=== PATIENT | female | born 2005 | race Caucasian/White ===

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

== ENCOUNTER → 2024-04-05 | Outpatient (CLI) | payer OTHER | LOC: LAB 15:06 → LAB SHORT 15:06 | DX: O09.91 Supervision of high risk pregnancy, unspecified, first trimester (principal) | CPT/HCPCS: 87081; 87150 ==

== ENCOUNTER 2024-04-18 20:26 | Inpatient (IN) | payer OTHER ==
[~2024-04-18] VITALS: Ht 160 cm; Wt 80.9 kg
[2024-04-18] MEDS ORDERED: Misoprostol 200 MCG Tab BC PRN (21:05)
[2024-04-18] MEDS ORDERED: Misoprostol 200 MCG Tab PR PRN (21:05)
[2024-04-18] MEDS ORDERED: Carboprost Tromethamine 250 MCG/ML 1ML Amp IM PRN (21:05)
[2024-04-18] MEDS ORDERED: Tranexamic Acid 1,000 MG in NS 100 ML IV SCH (21:05)
[2024-04-18] MEDS ORDERED: Methylergonovine Maleate 0.2MG / ML 1ML Amp IM PRN (21:05)
[2024-04-18] MEDS ORDERED: OXYTOCIN/RINGER'S LACTATE 500 ML IV PRN (21:05)
[2024-04-18] MEDS ORDERED: FentaNYL 2mcg/ml-Bup 0.1% Epd 250 ML EPI PRN (21:05)
[2024-04-18] MEDS ORDERED: Ondansetron HCl 2 MG / ML 2ML Vial IV PRN (21:05)
[2024-04-18] MEDS ORDERED: Acetaminophen 500 MG Tab PO PRN (21:05)
[2024-04-18] MEDS ORDERED: Oxytocin 10 Unit / ML Vial IM PRN (21:05)
[2024-04-18] MEDS ORDERED: Lactated Ringer's 1,000 ML IV PRN ×4 (21:05→21:10)
[2024-04-18] MEDS ORDERED: ePHEDrine Sulfate 50 MG/ML 1ML Injection XX PRN (21:05)
[2024-04-18] MEDS ORDERED: Calcium Carbonate 500 MG Tab Chew PO PRN (21:10)
[2024-04-18] MEDS ORDERED: OXYTOCIN/RINGER'S LACTATE 500 ML IV SCH (21:15)
[2024-04-18] MEDS ORDERED: Misoprostol 25 MCG Tab PO SCH (21:15)
[2024-04-18] MEDS ORDERED: FentaNYL Citrate 50 MCG/ML 2 ML Injection IV PRN (21:20)
[2024-04-18 22:03] LABS: BASOPHILS ABSOLUTE AUTO 0.02 K/mm3 (0.00-0.23); BASOPHILS PERCENT AUTO 0 % (0-2); EOSINOPHILS ABSOLUTE AUTO 0.12 K/mm3 (0.00-0.68); EOSINOPHILS PERCENT AUTO 1 % (0-6); Hematocrit 30.8 % (33.0-51.0); Hemoglobin 10.2 g/dL (11.5-16.0); IMMATURE GRAN ABSOLUTE AUTO 0.05 K/mm3 (0.00-0.10); IMMATURE GRAN PERCENT AUTO 0 % (0-1); LYMPHOCYTES PERCENT AUTO 18 % (21-46); MONOCYTES ABSOLUTE AUTO 0.76 K/mm3 (0.16-1.47); MONOCYTES PERCENT AUTO 7 % (4-13); Mean Corpuscular HGB 26.8 pg (26.0-34.0); Mean Corpuscular HGB Conc 33.1 g/dL (31.5-36.5); Mean Corpuscular Volume 81 fL (80-100); NEUTROPHILS ABSOLUTE AUTO 8.59 K/mm3 (1.96-9.15); NEUTROPHILS PERCENT AUTO 74 % (41-73); Platelet Count 270 K/mm3 (150-400); RDW Coefficient Variation 14.4 % (11.7-14.2); RDW Standard Deviation 42.2 fL (35.1-46.3); Red Blood Cell Count 3.81 M/mm3 (3.80-5.20); White Blood Cell Count 11.64 K/mm3 (4.00-11.30)
[2024-04-18] MEDS ORDERED: PRENATAL TABLE1 EAC2 PO (23:20)
[2024-04-19] VITALS (47 sets, daily range): BP systolic 92–141; BP diastolic 58–90
[2024-04-19] MEDS ORDERED: OXYTOCIN/RINGER'S LACTATE 500 ML IV SCH (09:00)
[2024-04-19] MEDS ORDERED: Lactated Ringer's 1,000 ML IV SCH ×2 (09:00→16:45)
[2024-04-19] MEDS ORDERED: NS 0 ML IV ONE (11:32)
[2024-04-19] MEDS ORDERED: FentaNYL Citrate 50 MCG/ML 2 ML Injection ONE (12:09)
[2024-04-19] MEDS ORDERED: Oxytocin 10 Unit / ML Vial IM ONE (16:45)
[2024-04-19] MEDS ORDERED: Docusate Sodium 100 MG Cap PO PRN (16:45)
[2024-04-19] MEDS ORDERED: Ibuprofen 400 MG Tab PO PRN (16:45)
[2024-04-19] MEDS ORDERED: Lanolin Cream TOP PRN (16:45)
[2024-04-19] MEDS ORDERED: Misoprostol 200 MCG Tab PR PRN (16:45)
[2024-04-19] MEDS ORDERED: Witch Hazel/Glycerin PADS TOP PRN (16:45)
[2024-04-19] MEDS ORDERED: Bethanechol CHl 25 MG Tab PO PRN (16:50)
[2024-04-19] MEDS ORDERED: Carboprost Tromethamine 250 MCG/ML 1ML Amp IM PRN (16:50)
[2024-04-19] MEDS ORDERED: Acetaminophen 325 MG TABLET PO PRN (16:50)
[2024-04-19] MEDS ORDERED: Methylergonovine Maleate 0.2MG / ML 1ML Amp IM PRN (16:50)
[2024-04-19] MEDS ORDERED: FLU VACC TS2024-25(6MOS UP)/PF 45 MCG/0.5 ML SYRINGE IM SCH (16:50)
[2024-04-19] MEDS ORDERED: Benzocaine/Benzethon Topical Anesthetic Spray 78GM TOP PRN (16:55)
[2024-04-19] MEDS ORDERED: Tranexamic Acid 100 ML IV PRN (17:00)
[2024-04-19] MEDS ORDERED: Ketorolac Tromethamine 30mg Vial IV SCH (18:00)
--- NOTE | 2024-04-19 18:44 | NUR ---
CBG DONE ON BABY [place] BUT MOMS WRISTBAND WAS SCANNED. RESULT OF 47 IN MOMS CHART IS ACTUALLY BABYS CBG
[2024-04-20 04:19] VITALS: BP 113/70
[2024-04-20 07:28] VITALS: BP 115/73
[2024-04-20] MEDS ORDERED: Prenatal Vit/FE Fumarate/FA 1 Tab PO SCH (09:00)
[2024-04-20 13:17] VITALS: BP 110/65
[2024-04-20 17:33] VITALS: BP 112/69
--- NOTE | 2024-04-20 17:45 | NUR ---
1745 dc home with SO and baby, ambulate out, has ppfu tomorrow. encouraged for mom to wake baby up every 2-3 hours to feed if baby wont feed to hand express, pt reports not wanting to use nipple shield due to getting baby mastitis last time. fob encouraged to have baby suck on his finger to help coordinate his suck then switch over to encourage pt to call with questions
== END 2024-04-20 17:38 | disposition home or self-care (01) | DRG 807 ==
LOC: BC 20:26 → OBS 20:26 → BC 20:28 → OBS 20:54 → BC 20:55
PROVIDERS: ADMIT Obstetrics & Gynecology
PROC: 10E0XZZ Delivery of Products of Conception, External Approach (ICD-10-PCS; principal; 2024-04-19)
PROC: 3E0R3BZ Introduction of Anesthetic Agent into Spinal Canal, Percutaneous Approach (ICD-10-PCS; 2024-04-19)
PROC: 00HU33Z Insertion of Infusion Device into Spinal Canal, Percutaneous Approach (ICD-10-PCS; 2024-04-19)
DX: O42.02 Full-term premature rupture of membranes, onset of labor within 24 hours of rupture (principal); Z37.0 Single live birth; Z3A.38 38 weeks gestation of pregnancy; O99.343 Other mental disorders complicating pregnancy, third trimester; F41.9 Anxiety disorder, unspecified; Z79.899 Other long term (current) drug therapy; F17.290 Nicotine dependence, other tobacco product, uncomplicated; O99.334 Smoking (tobacco) complicating childbirth
CPT/HCPCS: 36415; 51702; 82947; 85025; 86850; 86900; 86901; 99213; A9270; J1885; J2590; J7120

== ENCOUNTER 2024-12-30 09:02 | Emergency (ER) | payer OTHER ==
[~2024-12-30] VITALS: Ht 162.6 cm; Wt 72.6 kg
[2024-12-30 09:46] VITALS: BP 118/73
[2024-12-30] MEDS ORDERED: AFTERA1.5 M1 PO (14:01)
[2024-12-30] MEDS ORDERED: DOXY100 PO (14:06)
[2024-12-30] MEDS ORDERED: METR500 PO (14:06)
[2024-12-30] MEDS ORDERED: CefTRIAXone 1000 MG Vial IM ONE (14:10)
[2024-12-30] MEDS ORDERED: TRUVADA 200 MG1 EACH PO (14:34)
[2024-12-30] MEDS ORDERED: [UNRECOGNIZED DRUG - OTHER] PO (14:34)
[2024-12-30 15:18] LABS: Alanine Aminotransfer (ALT/SGP 21 U/L (12-78); Albumin, Blood 4.0 g/dL (3.4-5.0); Albumin/Globulin Ratio 1.1 (0.8-1.8); Aspartate Aminotrans (AST/SGOT 14 U/L (12-37); Bilirubin, Direct <0.1 mg/dL (0.0-0.3); Bilirubin, Indirect Unable to Calculate mg/dL (0.1-0.7); Bilirubin, Total <0.1 mg/dL (0.1-1.0); Globulin, Blood 3.6 g/dL (2.2-4.0); Total Protein, Blood 7.6 g/dL (6.4-8.2)
== END 2024-12-30 15:31 | disposition home or self-care (01) ==
LOC: ER 09:02
PROVIDERS: Student in an Organized Health Care Education/Training Program
DX: T74.21XA Adult sexual abuse, confirmed, initial encounter (principal); Z87.891 Personal history of nicotine dependence
CPT/HCPCS: 80076; 84703; 96372; 99285-25; A9270; J0696